=== PATIENT | female | born 1980 | race Hispanic/Latino ===

== ENCOUNTER 2018-05-07 15:50 | Emergency (ER) | payer OTHER ==
[2018-05-07 16:11] LABS: #Eosinphils 0.3 thou/uL (0.0-0.7); #Monocytes 0.4 thou/uL (0.11-0.59); #Neutrophils 4.5 thou/uL (1.40-6.50); %Basophils 0.5 % (0.0-1.0); %Eosinophils 3.8 % (0.0-10.0); %Lymphocytes 27.6 % (21.0-51.0); %Monocytes 5.1 % (0.0-10.0); Hemoglobin 13.3 g/dL (12.0-16.0); Mean Corpuscular HGB CONC 34.2 g/dL (32.0-36.0); Mean Corpuscular Hemoglobin 28.9 pg (27.0-31.0); Mean Corpuscular Volume 84.5 fL (78.0-98.0); Mean Platelet Volume 8.6 fL (7.4-10.4); Platelet Count 240 thou/uL (130-400); Red Blood Cell (RBC) Count 4.58 mill/uL (4.20-5.40); White Blood Cell (WBC) Count 7.1 thou/uL (4.8-10.8)
[2018-05-07 17:01] LABS: ALT (SGPT) 7 U/L (8-55); AST (SGOT) 10 U/L (5-34); Albumin 3.5 g/dL (3.5-5.0); Alkaline Phosphatase 65 U/L (40-150); Anion Gap 12 mmol/L (10-20); BUN (Urea Nitrogen) 7 mg/dL (7.0-18.7); Bilirubin, Total 0.2 mg/dL (0.2-1.2); Calc. Creatinine Clearance 0 mL/min (70-130); Carbon Dioxide 21 mmol/L (22-29); Chloride 108 mmol/L (98-107); Estimated GFR-MDRD Greater than 90; Glucose 89 mg/dL (70-105); Potassium 3.3 mmol/L (3.5-5.1); Protein, Total 6.5 g/dL (6.0-8.3); Sodium 138 mmol/L (136-145)
--- NOTE | 2018-05-07 18:44 | ULT ---
OB ULTRASOUND: Indications: Vaginal bleeding. FINDINGS: There is a single viable intrauterine . Gestational age by ultrasound is 16 weeks 0 days. Biometry measurements are consistent. Placenta: Anterior position: Transverse Amniotic fluid: Adequate Cervical length: 5.4 cm heart rate: 140 beats/minute IMPRESSION: 16 week 0 day gestation by ultrasound measurement. No abnormality identified. POS: [facility]
[2018-05-07 18:45] LABS: Bilirubin Negative (Negative); Blood, Urine Large (Negative); Clarity CLOUDY (Clear); Glucose, Urine (Dipstick) Negative (Negative); Leukocyte Moderate (Negative); Nitrite Negative (Negative); Protein, Urine (Dipstick) Trace mg/dL (Neg-Trace); Specific Gravity, Urine 1.005 (1.002-1.036); pH, Urine 6.5 (5.0-9.0)
[2018-05-07 18:47] LABS: Bacteria/HPF None Seen HPF (None Seen); Hyaline Casts/LPF 0-3 HYALINE CAST LPF (0-3 Hyaline); Pathc Cast-AUWi Flag 0.54 (0-2.49); RBC/HPF GREATER THAN 50-TNTC HPF (0-3); Squamous Epithelial 0-3 HPF (0-3); WBC/HPF 21-50 HPF (0-3)
== END 2018-05-07 19:43 | disposition home or self-care (01) ==
LOC: ERS 15:50
DX: O20.9 Hemorrhage in early pregnancy, unspecified (principal); O23.42 Unspecified infection of urinary tract in pregnancy, second trimester; Z3A.15 15 weeks gestation of pregnancy
CPT/HCPCS: 36415; 76805; 80053; 81003; 81015; 84702; 85025; 86900; 86901

== ENCOUNTER 2020-03-12 09:42 | Outpatient (CLI) | payer OTHER ==
--- NOTE | 2020-03-12 11:23 | ULT ---
Complete obstetrical ultrasound INDICATION: Evaluate anatomy TECHNIQUE: Grayscale, M-mode Doppler and Doppler images were obtained of the abdomen and pelvis to ev aluate the patient's known . COMPARISON: None. FINDINGS: Number of gestations: Single. Presentation: Breech. Placental location: Posterior Previa: No evidence for previa. Cervical length: 7.3 cm without evidence of funneling. BISMARK: Not recorded. Subjectively normal. heart rate: 146 bpm. Biparietal diameter: 4.48cm, 19 weeks and 4 days, Not calculated.. Head circumference: 16.98 cm, 19 weeks and 5 days, Not calculated. Abdominal circumference: 13.99 cm, 19 weeks and 5 days, Not calculated. Femoral length: 3.25cm, 19 weeks and 6 days, Not calculated. Estimated weight: 308 g; Not calculated. SURVEY: head: Normal appearing. Cerebellum: Normal appearing. Cisterna magna: Normal appearing. Lateral ventricles: Normal appearing. 4 chamber heart: Normal appearing.. Stomach: Normal appearing. Kidneys: Normal appearing. Cord insertion: Normal appearing. Bladder: Normal appearing. Spine: Normal appearing. Lips and nose: Normal appearing. Extremities: Normal appearing. Three-vessel CORD: Normal appearing. The average gestational age by ultrasound is 19 weeks and 5 days with estimated due date of August 01, 2020. The estimated dates by clinical data is 20 weeks and 2 dayswith estimated due date of July 28, 2020. IMPRESSION: 1. Single live intrauterine gestation with size and dates as above.
== END 2020-03-12 09:43 | disposition home or self-care (01) ==
LOC: BICULT 09:42
PROVIDERS: ATTEND Family Medicine
DX: O09.42 Supervision of pregnancy with grand multiparity, second trimester (principal); Z3A.19 19 weeks gestation of pregnancy
CPT/HCPCS: 76805